=== PATIENT | female | born 1970 | race Caucasian/White ===

== ENCOUNTER → 2018-05-31 | Outpatient (CLI) | payer OTHER | END | disposition home or self-care (01) | LOC: RAH 08:00 | PROVIDERS: ATTEND Family Medicine | DX: Z12.31 Encounter for screening mammogram for malignant neoplasm of breast (principal) | CPT/HCPCS: 77067 ==

== ENCOUNTER → 2019-02-14 | Outpatient (CLI) | payer OTHER ==
[~2019-02-14] MED LIST: GADODIAMIDE 10 MMOL/20 ML VIAL IV ONE
== END | disposition home or self-care (01) ==
LOC: RAH 07:37
PROVIDERS: ATTEND Family Medicine
DX: M51.27 Other intervertebral disc displacement, lumbosacral region (principal); D18.09 Hemangioma of other sites
CPT/HCPCS: 72158; A9579

== ENCOUNTER → 2019-04-20 | Outpatient (CLI) | payer OTHER | END | disposition home or self-care (01) | LOC: RAH 08:40 | PROVIDERS: ATTEND Family Medicine | DX: S93.401A Sprain of unspecified ligament of right ankle, initial encounter (principal); M25.471 Effusion, right ankle; X58.XXXA Exposure to other specified factors, initial encounter; Y93.89 Activity, other specified; Y92.89 Other specified places as the place of occurrence of the external cause; Y99.8 Other external cause status | CPT/HCPCS: 73721 ==

== ENCOUNTER → 2019-09-04 | Outpatient (CLI) | payer OTHER | END | disposition home or self-care (01) | LOC: RAH 09:36 | PROVIDERS: ATTEND Family Medicine | DX: K43.9 Ventral hernia without obstruction or gangrene (principal); Z98.84 Bariatric surgery status; R60.9 Edema, unspecified | CPT/HCPCS: 74176 ==

== ENCOUNTER → 2021-12-31 | Outpatient (CLI) | payer OTHER ==
[~2021-12-31] MED LIST changes: -GADODIAMIDE 10 MMOL/20 ML VIAL IV ONE; +GADOTERATE MEGLUMINE 10 MMOL/20 ML VIAL IV ONE
== END | disposition home or self-care (01) ==
LOC: RAH 12:42
PROVIDERS: ATTEND Family Medicine
DX: H81.23 Vestibular neuronitis, bilateral (principal); H70.892 Other mastoiditis and related conditions, left ear
CPT/HCPCS: 70553; A9575

== ENCOUNTER 2024-11-08 06:35 | Day surgery (SDC) | payer OTHER ==
[~2024-11-08] VITALS: Ht 160 cm; Wt 117.9 kg
[2024-11-08] VITALS (12 sets, daily range): BP systolic 82–138; BP diastolic 44–90; PULSE 55–74; RESP 14–22; TEMP 97.2–97.9
[~2024-11-08 06:35] MED LIST changes: -GADOTERATE MEGLUMINE 10 MMOL/20 ML VIAL IV ONE; +PANT20TA18 PO; +RIZA10TA98 PO; +SUCR1TAB2 PO; +SUMA6CAR6 SQ
[2024-11-08] MEDS: 0.9%NACL 1000ML 1,000 ML IV ONE (07:04)
[2024-11-08] MEDS ORDERED: LIDOCAINE PF 100MG/5ML (2%) SYRINGE 5ML ONE (09:14)
== END 2024-11-08 10:43 | disposition home or self-care (01) ==
LOC: DAH 06:35
PROVIDERS: ATTEND Surgery
DX: K30 Functional dyspepsia (principal); E66.01 Morbid (severe) obesity due to excess calories; R11.2 Nausea with vomiting, unspecified; K44.9 Diaphragmatic hernia without obstruction or gangrene; K76.0 Fatty (change of) liver, not elsewhere classified; G43.709 Chronic migraine without aura, not intractable, without status migrainosus; H81.90 Unspecified disorder of vestibular function, unspecified ear; G47.33 Obstructive sleep apnea (adult) (pediatric); Z90.49 Acquired absence of other specified parts of digestive tract; Z98.84 Bariatric surgery status; Z90.89 Acquired absence of other organs; Z98.51 Tubal ligation status; Z68.42 Body mass index [BMI] 45.0-49.9, adult; Z98.890 Other specified postprocedural states; Z79.899 Other long term (current) drug therapy
CPT/HCPCS: 43239; 84703; 36415; J7030; J2003; J2704; A4620; A4215 ×2; A4223; A4222; A4221; A4663; A4606; J3490

== ENCOUNTER 2024-12-20 06:59 | Day surgery (SDC) | payer OTHER ==
[~2024-12-20] VITALS: Ht 160 cm; Wt 163.3 kg
[2024-12-20] VITALS (10 sets, daily range): BP systolic 100–111; BP diastolic 61–81; PULSE 68–82; RESP 15–18; TEMP 97–97.6
[2024-12-20] MEDS: 0.9%NACL 1000ML 1,000 ML IV ONE (07:47)
== END 2024-12-20 09:15 | disposition home or self-care (01) ==
LOC: DAH 06:59
PROVIDERS: ATTEND Surgery
DX: R10.13 Epigastric pain (principal); K91.89 Other postprocedural complications and disorders of digestive system; K29.80 Duodenitis without bleeding; K26.9 Duodenal ulcer, unspecified as acute or chronic, without hemorrhage or perforation; K44.9 Diaphragmatic hernia without obstruction or gangrene; K76.0 Fatty (change of) liver, not elsewhere classified; G43.709 Chronic migraine without aura, not intractable, without status migrainosus; G47.33 Obstructive sleep apnea (adult) (pediatric); Z98.84 Bariatric surgery status; Z90.49 Acquired absence of other specified parts of digestive tract; Z98.51 Tubal ligation status; Z98.890 Other specified postprocedural states
CPT/HCPCS: 43270; 43239; J7030; J2704; A4620; C1726; A4215; J3490

== ENCOUNTER 2025-01-31 06:24 | Day surgery (SDC) | payer OTHER ==
[2025-01-31] VITALS (11 sets, daily range): BP systolic 100–125; BP diastolic 67–86; PULSE 69–85; RESP 14–18; TEMP 97.2–97.7
[~2025-01-31] VITALS: Ht 160 cm; Wt 120.7 kg
[~2025-01-31 06:24] MED LIST changes: +DESV25TA2 PO; -SUMA6CAR6 SQ
[2025-01-31] MEDS: 0.9%NACL 1000ML 1,000 ML IV ONE (07:23)
[2025-01-31] MEDS ORDERED: LIDOCAINE PF 100MG/5ML (2%) SYRINGE 5ML ONE (08:05)
[2025-01-31] MEDS ORDERED: GLYCOPYRROLATE 0.2 MG/ML 5 ML VIAL ONE (08:06)
== END 2025-01-31 11:56 | disposition home or self-care (01) ==
LOC: ENDO 06:24 → DAH 06:24 → ENDO 11:56
PROVIDERS: ATTEND Surgery
DX: K30 Functional dyspepsia (principal); K63.89 Other specified diseases of intestine; K22.89 Other specified disease of esophagus; E66.01 Morbid (severe) obesity due to excess calories; G47.33 Obstructive sleep apnea (adult) (pediatric); G43.909 Migraine, unspecified, not intractable, without status migrainosus; E66.9 Obesity, unspecified; K44.9 Diaphragmatic hernia without obstruction or gangrene; K91.89 Other postprocedural complications and disorders of digestive system; G43.709 Chronic migraine without aura, not intractable, without status migrainosus; Z98.84 Bariatric surgery status; H81.90 Unspecified disorder of vestibular function, unspecified ear; Z98.890 Other specified postprocedural states; Z98.51 Tubal ligation status; Z68.42 Body mass index [BMI] 45.0-49.9, adult
CPT/HCPCS: 43270; 43239; J7030; J2003; J2704; J3490; A4620; C1726; A4215 ×2; A4223; A4222; A4221; A4663; A4606